=== PATIENT | male | born 2000 | race Caucasian/White ===

== ENCOUNTER 2021-12-17 08:37 | Emergency (ER) | payer OTHER ==
[2021-12-17 09:36] LABS: ANION GAP 10.2 mmol/L (5-15)
[2021-12-17] MEDS: Ketorolac 30 MG/ML SDV IM ONE (09:46)
[2021-12-17] MEDS: Orphenadrine 60 MG/2 ML Inj IM ONE (09:47)
== END 2021-12-17 09:56 | disposition home or self-care (01) ==
LOC: VM.ED 08:37
DX: R07.89 Other chest pain (principal); M62.838 Other muscle spasm
CPT/HCPCS: 36415; 71046; 80053; 82550; 83615; 84484; 85025; 93005; 93010; 96372; 99284; 99285; J1885; J2360

== ENCOUNTER 2022-01-10 17:00 | Emergency (ER) | payer OTHER ==
[2022-01-10] MEDS ORDERED: Lidocaine 1% with EPINEPHrine 1:100,000 20 ML MDV INFILT PRN (17:15)
[2022-01-10] MEDS ORDERED: Diphtheria,Pertussis(Acell),Tetanus Vaccine 0.5 ML Syringe IM ONE (17:34)
[2022-01-10 21:18] VITALS: BP 175/81; PULSE 97
== END 2022-01-10 17:40 | disposition home or self-care (01) ==
LOC: VM.ED 17:00 → MERGE 17:00 → VM.ED 17:40
DX: S51.811A Laceration without foreign body of right forearm, initial encounter (principal); S61.411A Laceration without foreign body of right hand, initial encounter; Z23 Encounter for immunization; W26.8XXA Contact with other sharp object(s), not elsewhere classified, initial encounter
CPT/HCPCS: 12001; 12002; 90471; 90715; 99282-25; 99283